=== PATIENT | female | born 1955 | race Caucasian/White ===

== ENCOUNTER 2025-02-26 01:57 | Emergency (ER) | payer BC, MEDICARE ==
[2025-02-26] MEDS: GI Cocktail Oral Solution 30 ML PO ONE (02:13)
[2025-02-26 02:30] LABS: MEAN PLATELET VOLUME 8.5 fL (6.0-10.0); RED BLOOD CELL COUNT 4.03 M/uL (3.80-5.80); RED CELL DISTRIBUTION WIDTH 12.7 % (11.0-16.0); WHITE BLOOD CELL COUNT,WBC 13.8 K/uL (4.0-11.0)
[2025-02-26] MEDS: fentaNYL 100 MCG/2 ML SDV IVPUSH ONE (02:30)
[2025-02-26] MEDS: Nitroglycerin 0.4 MG Tab.SL SL ONE (02:33)
[2025-02-26 02:35] LABS: PLATELET COUNT,PLT 1054 K/uL (150-500)
[2025-02-26 02:46] LABS: A/G RATIO 0.5 (0.8-2.0); ALANINE AMINOTRANSFERASE,ALT 42.0 U/L (12-78); ASPARTATE AMNIOTRANSFERASE,AST 40.0 U/L (15-37); BILIRUBIN TOTAL 0.5 mg/dL (0.0-1.0); BLOOD UREA NITROGEN,BUN 22.0 mg/dL (8-26); CARBON DIOXIDE,CO2 28.0 mmol/L (21.0-32.0); CHLORIDE,CL 96.0 mmol/L (98-107); CREATININE 0.96 mg/dL (0.55-1.02); EST CRCL DRUG DOSING (CG) 44.79 mL/min; ESTIMATED GFR 65.0 mL/min (>60); GLUCOSE RANDOM 124.0 mg/dL (74-100); POTASSIUM,K 3.8 mmol/L (3.5-5.1); PROTEIN TOTAL,TP 7.7 g/dL (6.4-8.2); SODIUM,NA 131.0 mmol/L (136-145); TROPONIN I HIGH SENSITIVITY 4.6 pg/ml (<=60.4)
[2025-02-26 03:02] LABS: INR 1.0 (1.0-3.5); PTT,PARTIAL THROMBOPLSTIN TIME 26.8 SECONDS (24.4-33.2)
[2025-02-26] MEDS: fentaNYL 100 MCG/2 ML SDV ONE (03:25)
[2025-02-26] MEDS: Sodium Chloride 0.9% 10 ML Syringe FLUSH PRN (03:30)
[2025-02-26 03:32] LABS: LYMPHOCYTES PERCENT MAN 10.0 % (20.0-40.0); SEG NEUTROPHILS PERCENT MAN 89.0 % (45.0-70.0)
[2025-02-26 03:33] LABS: MONOCYTES PERCENT MAN 1.0 % (3.0-10.0)
[2025-02-26 03:34] LABS: PLATELET COUNT ESTIMATE MARKED INC
[2025-02-26] MEDS: Sodium Chloride 0.9% 50 ML SDV FLUSH ONE (03:34)
[2025-02-26] MEDS: Iopamidol 612 MG/ML 100 ML Bottle IV SCH (03:34)
[2025-02-26] MEDS ORDERED: Sodium Chloride 0.9% 10 ML Syringe FLUSH PRN (03:49)
[2025-02-26 05:23] LABS: BASOPHILS ABSOLUTE AUTO 0.05 K/uL (0.02-0.10); BASOPHILS PERCENT AUTO 0.4 % (0.0-0.5); EOSINOPHILS ABSOLUTE AUTO 0.05 K/uL (0.04-0.40); EOSINOPHILS PERCENT AUTO 0.4 % (1.0-5.0); LYMPHOCYTES ABSOLUTE AUTO 1.95 K/uL (1.50-4.00); LYMPHOCYTES PERCENT AUTO 16.9 % (20.0-40.0); MEAN PLATELET VOLUME 8.1 fL (6.0-10.0); MONOCYTES ABSOLUTE AUTO 1.05 K/uL (0.20-0.80); MONOCYTES PERCENT AUTO 9.1 % (3.0-10.0); NEUTROPHILS ABSOLUTE AUTO 8.44 K/uL (2.00-7.50); NEUTROPHILS PERCENT AUTO 73.2 % (45.0-70.0); RED BLOOD CELL COUNT 3.80 M/uL (3.80-5.80); RED CELL DISTRIBUTION WIDTH 12.6 % (11.0-16.0); WHITE BLOOD CELL COUNT,WBC 11.5 K/uL (4.0-11.0)
[2025-02-26 05:26] LABS: PLATELET COUNT,PLT 1018 K/uL (150-500)
== END 2025-02-26 06:28 | disposition home or self-care (01) ==
LOC: LB.ED 01:57
DX: K20.90 Esophagitis, unspecified without bleeding (principal); D75.839 Thrombocytosis, unspecified
CPT/HCPCS: 36415; 71045; 71250; 71260; 74176; 80053; 80061; 81001; 82024; 82088; 82310; 82533; 82728; 83036; 83516; 83540; 83550; 83690; 83735; 83930; 83970; 84145; 84146; 84244; 84300; 84443; 84484; 84588; 85025; 85379; 85384; 85610; 85651; 85730; 86036; 86038; 86431; 87086; 87468; 87469; 87484; 87798; 93005; 96361; 96374; 99285-25; A9270-GY; J2470; J7030; Q9967

== ENCOUNTER 2025-02-26 14:45 | Emergency (ER) | payer MEDICARE | END 2025-02-26 17:52 | disposition left against medical advice (07) | LOC: LB.ED 14:45 | DX: Z53.21 Procedure and treatment not carried out due to patient leaving prior to being seen by health care provider (principal) ==

== ENCOUNTER 2025-03-16 15:25 | Emergency (ER) | payer MEDICARE ==
[2025-03-16] MEDS: Sodium Chloride 0.9% 50 ML SDV FLUSH ONE (16:00)
[2025-03-16] MEDS: Iopamidol 755 Mg/ML 100 ML Bottle IV SCH (16:00)
== END 2025-03-16 17:08 | disposition home or self-care (01) ==
LOC: LB.ED 15:25
DX: D75.839 Thrombocytosis, unspecified (principal)
CPT/HCPCS: 71260; 99283; Q9967